=== PATIENT | female | born 1935 | race Caucasian/White ===

== ENCOUNTER → 2016-08-03 | Outpatient (CLI) | payer MEDICARE, BC ==
[2015-01-14 09:40] VITALS: BP 145/88
[~2016-08-03] MED LIST: CELE200C PO; CRESTOR10 MG PO; FURO20TA3 PO; GABA-585 PO; GADOBUTROL 10 MMOL/10 ML VIAL IV ONE; LEVE500T56 PO; MULT-658 PO; POTA20TA12 PO; PRIM250T PO; PRIM50TA PO; PROP20TA PO; SERT100T PO; VALS1TAB8 PO
--- NOTE | 2016-08-03 14:58 | KCIC ---
PROCEDURE Brain MRI with and without contrast. HISTORY Atypical meningioma. TECHNIQUE Multiplanar and multi sequence magnetic resonance imaging of the brain was performed prior to and following the administration of 10 cc Gadavist intravenous contrast. COMPARISON Correlation is made with a report from a prior MRI performed at an outside facility on 07/16/2013. The images corresponding with this report are not available for direct comparison. FINDINGS There are findings consistent with left pterional craniotomy. There is stable encephalomalacia and gliosis within the left temporal and posterior frontal lobes. There is no residual mass or abnormal enhancement. There are scattered foci of signal change within the cerebral white matter, likely due to chronic small vessel disease. There is signal change likely due to chronic infarction within the left frontal lobe near the vertex and bilateral posterior parietal lobes. There are normal flow voids within the cerebral vessels. There is no restricted diffusion to suggest acute infarction. There is increased signal on diffusion-weighted images within the left temporal lobe due to artifact. There is no susceptibility effect to suggest hemorrhage. There is cerebral volume loss. There are findings consistent with lens surgery. The paranasal sinuses and mastoid air cells are unremarkable. IMPRESSION 1. Left craniotomy changes with encephalomalacia and gliosis within the left temporal and posterior frontal lobes. No suspicious mass or enhancement is seen to suggest a recurrent or residual atypical meningioma. 2. Scattered focal areas of signal change within the cerebral white matter, likely due to chronic small vessel disease. There are suspected superimposed chronic infarct within the left frontal and bilateral parietal lobes. 3. Cerebral volume loss. Electronically signed by: Isabella White (Aug 03, 2016 14:57:12)
== END | disposition home or self-care (01) ==
LOC: KCIC MRI 13:28
DX: D32.9 Benign neoplasm of meninges, unspecified (principal)
CPT/HCPCS: 70553; 82565; A9585

== ENCOUNTER → 2017-02-25 | Outpatient (CLI) | payer MEDICARE, BC ==
[2015-01-14 09:40] VITALS: BP 145/88
[~2017-02-25] MED LIST changes: -GADOBUTROL 10 MMOL/10 ML VIAL IV ONE
--- NOTE | 2017-02-26 09:17 | KCIC ---
MR of the left shoulder Indication: Left shoulder pain. Weakness. Symptoms for 6 weeks. Technique: Standard multiplanar sequences are obtained. Findings: Acromioclavicular joint: Mildly degenerative. Small undersurface osteophyte. Rotator cuff: Generalized tendinosis. Linear undersurface tear of the supraspinatus tendon footprint measures about 15 mm AP diameter and extends 70 percent deep. No through and through rupture. Partial subscapularis tendon tear. Small subdeltoid bursal effusion. Glenohumeral cartilage: Severe chondromalacia. Fluid: Small joint effusion. Labrum: Tear of the superior labrum. There also appears to be a tear of the inferior labrum. Distortion of the posterior labrum compatible with degeneration or tear. Biceps tendon: Moderate tendinosis with thickening and signal. Bones: No lesion or acute fracture. Soft tissue: No acute findings. Impression: 1. Deep undersurface tear of the supraspinatus tendon. Partial subscapularis tendon tear. No full-thickness tear. Mild subdeltoid bursal effusion or bursitis. 2. Superior labral tear and inferior labral tear. Posterior labral degeneration versus tear. 3. Moderate biceps tendinosis. 4. Primary osteoarthritis. Electronically signed by: Tc Andino MD (02/26/2017 9:14 AM) [facility]IC2
== END | disposition home or self-care (01) ==
LOC: KCIC MRI 16:45
PROVIDERS: ATTEND Orthopaedic Surgery Sports Medicine
DX: S46.019A Strain of muscle(s) and tendon(s) of the rotator cuff of unspecified shoulder, initial encounter (principal); M19.012 Primary osteoarthritis, left shoulder; M94.212 Chondromalacia, left shoulder; X58.XXXA Exposure to other specified factors, initial encounter; Y93.89 Activity, other specified; Y92.89 Other specified places as the place of occurrence of the external cause; Y99.8 Other external cause status
CPT/HCPCS: 73221

== ENCOUNTER → 2018-09-09 | Outpatient (CLI) | payer MEDICARE, BC ==
[2015-01-14 09:40] VITALS: BP 145/88
[~2018-09-09] MED LIST changes: +GADOBUTROL 10 MMOL/10 ML VIAL IV ONE
--- NOTE | 2018-09-09 12:57 | KCIC ---
MRI Brain with and without contrast History: Tremors of jaw and hands getting worse, history of atypical meningioma Technique: Multiplanar, multi sequential pre and postcontrast MR imaging was performed of the brain. Comparison: August 03, 2016 Findings: There is no convincing evidence of recent infarct, tiny focus of increased diffusion signal left temporal lobe believed to be artifactual as diffusion signal abnormality at this location previously. There again has been left frontal parietal temporal craniotomy. There is again encephalomalacia/resection cavity of the left middle cranial fossa of left temporal lobe, also left frontal lobe. There is cortical involvement. There is again likely gliosis signified by T2 and FLAIR hyperintense signal of the left frontal and temporal lobes. There is increased extra-axial enhancement anteriorly of the left middle cranial fossa about 0.5 cm AP by 1.6 cm transverse by about 1.1 cm CC best seen axial image 10 series 10 and sagittal image 9 series 12. Previously there was small focus of enhancement in this region measures about 0.2 cm AP by 0.8 cm transverse by 0.6 cm cc. There is no nodular parenchymal enhancement. There is no new midline shift. Ventricular size is stable. There is other scattered multifocal [id number] T2 and FLAIR hyperintense abnormality of the supratentorial parenchyma bilaterally, somewhat greater of the bilateral periatrial white matter and along the right periventricular white matter. There are small foci of encephalomalacia with cortical involvement of the bilateral parietal lobes more posteriorly as seen previously. There is preservation of the major arterial flow voids at the skull base. There has been lens surgery bilaterally. Paranasal sinuses and mastoid air cells are overall aerated. Impression: 1. There are again foci of encephalomalacia/resection cavity of left temporal and frontal lobes with cortical involvement, also small old infarcts with cortical involvement of the bilateral parietal lobes. There is a small focus of increased extra-axial enhancement of the anterior aspect of the left middle cranial fossa likely due to residual/recurrent tumor. There is other scattered nonspecific T2 and FLAIR hyperintense signal abnormality of the supratentorial parenchyma somewhat progressed since 2017 exam, findings more commonly due to to chronic microvascular ischemic disease in a patient this age. Electronically signed by: Oswald Mason MD (09/09/2018 12:54 PM) [facility]-KCIC1
== END | disposition home or self-care (01) ==
LOC: KCIC MRI 11:26
PROVIDERS: ATTEND Registered Nurse
DX: G93.89 Other specified disorders of brain (principal)
CPT/HCPCS: 70553; A9585

== ENCOUNTER → 2018-09-24 | Outpatient (CLI) | payer MEDICARE, BC ==
[2015-01-14 09:40] VITALS: BP 145/88
[~2018-09-24] MED LIST changes: -GADOBUTROL 10 MMOL/10 ML VIAL IV ONE
--- NOTE | 2018-09-24 16:12 | KCIC ---
MRI Lumbar Spine without contrast History: Chronic back pain, bilateral leg pain Technique: Multiplanar, multi sequential noncontrast MR imaging was performed of the lumbar spine. Comparison: CT 07/03/2004 Findings: Most inferior fully formed intervertebral disc space is considered L5-S1. There is again advanced degenerative disc disease at L5-S1. There has been progression of fairly advanced degenerative disc disease at L4-L5. [id number] L2-3 degenerative disc disease has also progressed in the interval, mild to moderate degenerative disc disease at L3-4 and L1-L2. Lumbar vertebral body stature is overall maintained, multilevel small Schmorl's nodes. Conus terminates near T12-L1. There is trace L3-4 and L4-5 endplate edema and also very minimally posteriorly L1-2 likely reactive/degenerative in etiology. There is grade 1 anterior spondylolisthesis at L4-5. There are some small T2 hyperintense foci of the visualized kidneys bilaterally, statistically more likely cysts. L1-L2: There is minimal disc osteophyte complex and bulge. Neural foramina and spinal canal are adequate. L2-L3: There is minimal disc osteophyte complex and bulge. There is mild facet hypertrophic change and buckling of the ligamentum flavum. There is very mild narrowing of the far right lateral recess. Neural foramina are adequate. L3-L4: There is minimal disc osteophyte complex and bulge, mild indentation upon the ventral thecal sac greater in the far left lateral recess. There is mild buckling of the ligamentum flavum greater on the right. There is mild facet degenerative change. There is mild to moderate narrowing of the far left lateral recess. There is mild narrowing of the neural foramina bilaterally from posteriorly. L4-L5: There is mild to moderate facet hypertrophic change greater on the left. There is also buckling of the ligamentum flavum on the left. There is right laminectomy defect. There is mild partial uncovering of the posterior aspect of the disc due to spondylolisthesis and superimposed minimal disc osteophyte complex. There is mild to moderate narrowing of the far left lateral recess. There is mild right and moderate left neural foramina compromise. There is contact of the undersurface exiting left L4 nerve root in the distal neural foramen and proximal extraforaminal region by disc osteophyte complex. L5-S1: There is mild to moderate facet degenerative change. There is minimal disc osteophyte complex and very shallow protrusion somewhat greater in the right lateral recess without significant neural impingement or spinal stenosis. Left neural foramen is overall adequate. There is moderate narrowing of the right neural foramen primarily from posteriorly by facet, contact of the exiting right L5 nerve root. Impression: 1. There is multilevel lumbar degenerative disc disease, progression of degenerative disc disease most notable at L4-5 since 2005 exam. 2. There is multilevel lumbar neural foramina compromise greatest on the left at L4-5 and on the right L5-S1. 3. There is sdzy-py-[id number] narrowing of the far left lateral recesses at L3-4 and L4-5. 4. There is grade 1 anterior spondylolisthesis at L4-5, multilevel facet degenerative change. Electronically signed by: Oswald Mason MD (09/24/2018 4:09 PM) [facility]-KCIC1
== END | disposition home or self-care (01) ==
LOC: KCIC MRI 15:18
PROVIDERS: ATTEND Physician Assistant Medical
DX: M51.37 Other intervertebral disc degeneration, lumbosacral region (principal); M47.817 Spondylosis without myelopathy or radiculopathy, lumbosacral region; M48.07 Spinal stenosis, lumbosacral region; M43.16 Spondylolisthesis, lumbar region; M25.78 Osteophyte, vertebrae; M89.38 Hypertrophy of bone, other site
CPT/HCPCS: 72148

== ENCOUNTER → 2018-12-16 | Outpatient (CLI) | payer MEDICARE, BC ==
[2015-01-14 09:40] VITALS: BP 145/88
--- NOTE | 2018-12-22 13:48 | EEG ---
DATE OF SERVICE: 12/16/2018 EEG NUMBER: [id number] OBJECTIVE: This is an 83-year-old female patient with history of abnormal movements. EEG was requested to evaluate cerebral activity. METHODS: Twenty electrodes were applied according to the international 10-20 electrode placement system. EKG monitoring, hyperventilation, intermittent photic stimulation, monopolar and bipolar montages are routinely utilized. The record was obtained on a digital system with video monitoring. FINDINGS: 1. Background: The patient was recorded in awake and drowsy states. No actual sleep state was recorded. The overall background amplitude is 10-20 microvolts. A posterior dominant rhythm of 8 Hz is observed. The overall background amplitude is slightly higher in the right hemispherical area than the left hemispherical area. 2. Abnormalities: No specific epileptiform discharge or electrographic seizure is seen. No focal or diffuse slowing. 3. Activation: Hyperventilation was performed with fair efforts and normal response. Intermittent photic stimulation was performed with photic driving. Photoparoxysmal response noted. IMPRESSION: This EEG is a borderline study for the awake and drowsy states. No sleep state was recorded. The cerebral activity is slightly higher in the right hemispherical area than the left side. Photoparoxysmal response noted. No focal, lateralizing, specific epileptiform discharge or electrographic seizure is seen. WHIT COLE MD DR: MARYURI/phylicia JOB#: [id number] / [id number] MIRTHA
== END | disposition home or self-care (01) ==
LOC: RT 09:50
PROVIDERS: ATTEND Psychiatry & Neurology Neurology
DX: G25.0 Essential tremor (principal)
CPT/HCPCS: 95816

== ENCOUNTER → 2018-12-16 | Outpatient (CLI) | payer MEDICARE, BC ==
[2015-01-14 09:40] VITALS: BP 145/88
[2018-12-16 12:08] LABS: BASO # 0.1 x10^3/uL (0.0-0.2); BASO % 1 % (0-3); EOS # 0.1 x10^3/uL (0.0-0.7); EOS % 2 % (0-3); HEMATOCRIT 44.4 % (36.0-47.0); HEMOGLOBIN 14.7 g/dL (12.0-15.5); LYMPH # 1.8 x10^3/uL (1.0-4.8); LYMPH % 34 % (24-48); MEAN CORPUSCULAR HEMOGLOBIN 31 pg (25-35); MEAN CORPUSCULAR HGB CONC 33 g/dL (31-37); MEAN CORPUSCULAR VOLUME 92 fL (79-100); MONO # 0.5 x10^3/uL (0.0-1.1); MONO % 9 % (0-9); NEUT # 2.8 x10^3/uL (1.8-7.7); NEUT % 55 % (31-73); PLATELET COUNT 215 x10^3/uL (140-400); RED BLOOD COUNT 4.82 x10^6/uL (3.50-5.40); RED CELL DISTRIBUTION WIDTH 16.3 % (11.5-14.5); WHITE BLOOD COUNT 5.2 x10^3/uL (4.0-11.0)
[2018-12-16 12:40] LABS: FREE T4 0.82 ng/dL (0.76-1.46); THYROID STIM HORMONE (TSH) 2.302 uIU/mL (0.358-3.74)
[2018-12-16 13:06] LABS: ALBUMIN 3.8 g/dL (3.4-5.0); ALBUMIN/GLOBULIN RATIO 1.1 (1.0-1.7); CALCIUM 8.8 mg/dL (8.5-10.1); GFR 53.2; POTASSIUM 4.1 mmol/L (3.5-5.1); TOTAL BILIRUBIN 0.3 mg/dL (0.2-1.0); TOTAL PROTEIN 7.3 g/dL (6.4-8.2)
--- NOTE | 2018-12-16 15:01 | EKG ---
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
[2018-12-16 23:08] LABS: CALCIUM PTH 8.8 mg/dL (8.7-10.3); CREATININE PTH 0.84 mg/dL (0.57-1.00); PHOSPHORUS PTH 3.3 mg/dL (2.5-4.5); PTH INTACT 88 pg/mL (15-65)
[2018-12-17 15:10] LABS: CERULOPLASMIN 23.2 mg/dL (19.0-39.0)
== END | disposition home or self-care (01) ==
LOC: LAB 11:40
PROVIDERS: ATTEND Psychiatry & Neurology Neurology
DX: G25.0 Essential tremor (principal); Z79.899 Other long term (current) drug therapy
CPT/HCPCS: 36415; 80053; 82306; 82310; 82390; 82525; 82607; 83970; 84439; 84443; 85025; 93005

== ENCOUNTER → 2021-02-10 | Outpatient (CLI) | payer MEDICARE, BC ==
[2015-01-14 09:40] VITALS: BP 145/88
--- NOTE | 2021-02-10 15:14 | KCIC ---
EXAM: Brain MRI without contrast. HISTORY: Essential tremor. TECHNIQUE: Multiplanar, multisequence magnetic resonance imaging of the brain was performed without c ontrast. COMPARISON: 09/09/2018 FINDINGS: There is encephalomalacia involving the anterior left temporal lobe and inferior left infer ior lateral left frontal lobe. There are overlying craniotomy changes. There is ex vacuo dilatation o f the left lateral ventricle due to left-sided volume loss. There is cerebral atrophy. There are exte nsive scattered areas of signal change throughout the cerebral white matter, most commonly due to chr onic small vessel disease in patients of this age. There are small bilateral chronic cortical infarcts, stable in appearance. There is evidence of lens surgery. The paranasal sinuses mastoid air cells are unremarkable. There are normal flow voids within the cerebral vessels. There is no suspicious calvarial lesion. There is no acute or subacute hemorrh age. IMPRESSION: 1. Encephalomalacia within the anterior left temporal lobe and inferior lateral left frontal lobe wit h overlying craniotomy changes, stable in appearance. Note is made that previously described extra-ax ial enhancement in the left middle cranial fossa cannot be assessed on this exam due to the absence o f intravenous contrast. 2. Extensive scattered areas of signal change throughout the cerebral white matter, likely due to chr onic small vessel disease in a patient of this age. 3. Small bilateral chronic cerebral cortical infarct, stable in appearance. 4. Cerebral atrophy. Electronically signed by: Isabella White MD (02/10/2021 3:12 PM) [id number]
== END ==
LOC: KCIC MRI 13:49
PROVIDERS: ATTEND Nurse Practitioner Family
DX: G31.9 Degenerative disease of nervous system, unspecified (principal); I63.9 Cerebral infarction, unspecified; G93.89 Other specified disorders of brain; G25.0 Essential tremor
CPT/HCPCS: 70551